=== PATIENT | male | born 2000 | race Caucasian/White ===

== ENCOUNTER 2021-06-20 17:19 | Emergency (ER) | payer BC, SELFPAY ==
[2021-06-20 17:25] VITALS: BP 114/66; PULSE 68; RESP 18; TEMP 36.9; O2SAT 100; BMI 22.8
[2021-06-20] MEDS: Famotidine/PF 20 MG/2 ML VIAL IVPUSH (17:37)
[2021-06-20] MEDS: methylPREDNISolone Sod Succ 125 MG/2 ML VIAL IVPUSH (17:37)
[2021-06-20] MEDS: diphenhydrAMINE HCL 50 MG/ML VIAL 25 MG IVPUSH (17:37)
--- NOTE | 2021-06-20 18:05 | ED.ALLEREA ---
HPI - Allergic Reaction General Chief complaint: Allergic Reaction Stated complaint: allergic reaction to bee sting Time Seen by Provider: 06/20/21 17:33 Source: patient Mode of arrival: ambulatory Limitations: no limitations History of Present Illness HPI narrative: Patient comes to the emergency room complaining of an allergic reaction to a bee sting. Patient states he was stung in the chin. Complaining hives in his head, face, upper chest, initially very itchy. Prior to arrival, the patient's mother gave her children's Benadryl in the code form. Patient states that since then he is no longer itching, patient denies shortness of breath, no foreign body sensation in his throat Related Data Previous Rx's Medication Instructions Recorded epinephrine 0.3 mg/0.3 mL 0.3 mg IM Q10M PRN #2 ea 06/20/21 injection, auto-injector (EpiPen) Allergies Allergy/AdvReac Type Severity Reaction Status Date / Time No Known Allergies Allergy Verified 06/20/21 17:33 Review of Systems Review of Systems: Constitutional : No Weight loss, No Fever, No Chills, No Night Sweats, No Fatigue, No Malaise ENT/Mouth : No Hearing loss, No Ear Pain, No Nasal Congestion, No Sinus Pain, No Hoarseness, No sore throat, No Rhinorrhea, No Swallowing Difficulty Eyes: No Eye Pain, No Swelling, No Redness, No Foreign Body, No Discharge, No Vision Changes Cardiovascular : No Chest Pain, No SOB, No Dyspnea on Exertion, No Orthopnea, No Edema, No Palpitations Respiratory : No Cough, No Sputum, No Wheezing, No Smoke Exposure, No Dyspnea Gastrointestinal : No Nausea, No Vomiting, No Diarrhea, No Constipation, No abdominal Pain, No Hematochezia, No Melena Genitourinary : no irregular bleeding, No Dysuria, No Urinary Frequency, No Hematuria, No Urinary Incontinence, No Urgency, No Flank Pain, No Urinary Flow Changes, No Hesitancy Musculoskeletal : No joint pain, No Myalgias, No Joint Swelling Skin : Hives in the head, face, back and chest Neuro : No Weakness, No Numbness, No Paresthesias, No Loss of Consciousness, No Dizziness, No Headache Psych : No Anxiety/Panic, No Depression, No SI/HI/AH/VH, No Social Issues, Heme/Lymph: No Bruising, No Bleeding,No Lymphadenopathy Endocrine : No Polyuria, No Polydipsia, No Temperature Intolerance PMFSH Social History Social History Alcohol intake: never Patient Tobacco Use Status: Never used Tobacco Use of substances other than those prescribed or required for medical reasons: No Advance Directives: No Advance Directives Information Provided: No Physical Exam Vital Signs: Vital Signs: Last Vital Signs Temp 98.4 F 06/20/21 17:25 Pulse 68 06/20/21 17:25 Resp 18 06/20/21 17:25 BP 114/66 06/20/21 17:25 Pulse Ox 100 06/20/21 17:25 Body Mass Index 22.8 Const: Other: Appearance: Alert. Oriented X3. No acute distress. Eyes: Pupils equal, round and reactive to light. ENT: Pharynx normal. No angioedema Neck: Normal inspection. Neck supple. No lymph nodes noted. No crepitus CVS: Normal heart rate and rhythm. Pulses normal. Normal S1 and S2 Respiratory: No respiratory distress. Breath sounds normal. No Wheezing. No rales Abdomen: Soft and nontender. No rigidity. No distention. good BS x4 Skin: Skin warm and dry. Flushed, hives in the head, face, neck, torso Extremities: No lower extremity edema. No lower extremity edema. No Lacerations. No Rash Neuro: Oriented X 3. No motor deficit. No sensory deficit. Moving all extermities. No slurred speech. Course Course Course Narrative: Patient is ready for discharge, asymptomatic. Patient with Kalyan a prescription for EpiPen, discussed how and when to use it. Reevaluation(s) Reevaluation #1: Patient noticeably improved, hives are almost resolved, patient is asymptomatic, long broths within normal limits, oropharynx within normal limits, no angioedema. Reevaluation #2: Patient's eyes completely resolve, patient asymptomatic, normal breath sounds, no angioedema. Time: 19:05 Discharge Plan Discharge Clinical Impression: Bee sting allergy Patient Disposition: Home, Self-Care Instructions: Insect Bite or Sting (ED) Additional Instructions: Please follow-up with your primary care physician tomorrow. If you have any worsening or new symptoms, please return to the emergency room or call 911 Prescriptions: New epinephrine [EpiPen] 0.3 mg/0.3 mL auto-injector 0.3 mg IM Q10M PRN (Reason: anaphylaxis) Qty: 2 RF: 0
[2021-06-20 19:33] VITALS: BP 113/60; PULSE 61; RESP 16; TEMP 37.1; O2SAT 100
== END 2021-06-20 19:38 | disposition home or self-care (01) ==
PROVIDERS: Emergency Provider Emergency Medicine
DX: T63.441A Toxic effect of venom of bees, accidental (unintentional), initial encounter (principal); Y92.9 Unspecified place or not applicable; Z79.899 Other long term (current) drug therapy
CPT/HCPCS: 96374; 96375; 99284; 99285; J1200; J2930

== ENCOUNTER → 2022-11-20 15:09 | Outpatient (BNVA) | payer SELFPAY | PROVIDERS: Visit Provider Physician Assistant | DX: Z13.89 Encounter for screening for other disorder (principal) ==

== ENCOUNTER 2025-05-31 21:21 | Emergency (ER) | payer BC, SELFPAY ==
--- NOTE | 2025-05-31 21:24 | ECG_ITS ---
Test Reason : CHEST PAIN Blood Pressure : */* mmHG Vent. Rate : 53 BPM Atrial Rate : 53 BPM P-R Int : 190 ms QRS Dur : 102 ms QT Int : 392 ms P-R-T Axes : 48 61 48 degrees QTcB Int : 367 ms Sinus bradycardia Otherwise normal ECG No previous ECGs available Referred By: Generic ED Physician Electronically Signed By: ELIZABETH ANAYA MD
[2025-05-31 21:47] LABS: MANUAL DIFF FLAG NO
[2025-05-31 21:48] LABS: Hematocrit 40.9 % (42.0-52.0); Hemoglobin 14.1 g/dl (14.0-18.0); Imm Gran Abs Auto 0.01 X10*3/uL (0.00-0.03); Imm Gran Pct Auto 0.2 % (0.0-0.4); Lymphocytes Absolute Auto 2.1 X10*3/uL (1.2-4.9); Mean Corpuscular HGB Conc 34.5 g/dl (31.0-36.0); Mean Corpuscular Hemoglobin 29.3 pg (27.0-33.0); Mean Corpuscular Volume 84.9 fL (80.0-98.0); NRBC Abs Auto 0.000 X10*3/uL (0.0-0.012); NRBC Pct Auto 0.0 /100WBC (0.0-0.2); Platelet Count 228 X10*3/uL (160-400); Red Blood Count 4.82 X10*6/uL (4.60-5.80); White Blood Count 5.3 X10*3/uL (4.8-10.8)
[2025-05-31 22:04] VITALS: BP 134/78; PULSE 52; RESP 16; TEMP 36.6; O2SAT 98; BMI 24.8
[2025-05-31 22:09] LABS: Anion Gap 12 (12-20); Blood Urea Nitrogen 19 mg/dL (9-16); Carbon Dioxide 28 mmol/L (22-29); Chloride 107 mmol/L (96-108); Potassium 3.8 mmol/L (3.3-5.1); Sodium 143 mmol/L (135-145)
[2025-05-31 22:10] LABS: Calcium 8.9 mg/dL (8.4-10.2); Creatinine Clr Calc Pharmacy 110.8; Estimated Glomerular Filt Rate > 60
[2025-05-31 22:19] LABS: Troponin-I High Sensitivity < 2.7 ng/L (<3.5-35.0)
--- NOTE | 2025-05-31 23:11 | ED.CHESTPAIN ---
HPI - Chest Pain General Chief Complaint: Chest Pain Stated Complaint: chest pain/possible AFib Time Seen by Provider: 05/31/25 23:07 History of Present Illness ED Provider: Shai Cuellar MD HPI narrative: 24-year-old male with intermittent nonradiating left-sided chest pain ongoing for a year. 1 year of intermittent, seconds-long lasting non exertional chest pain under L pectoral region. Non pleuritic. No prior PE, lung/cardiac hx personally or in family. Used a home BP cuff today that said possible AFib so came in for eval, no change in chest pain Related Data Previous Rx's ?Medication ?Instructions ?Recorded epinephrine 0.3 mg/0.3 mL 0.3 mg (0.3 mL) IM Q10M PRN 06/20/21 injection, auto-injector (EpiPen) anaphylaxis #2 ea Allergies Allergy/AdvReac Type Severity Reaction Status Date / Time bee pollen (bee stings) Allergy Hives Verified 05/31/25 22:07 COUNT INCLUDES THE [facility] Social History Social History Alcohol intake: never Patient Tobacco Use Status: Never used Tobacco Smoked in Last 30 Days: No Use of substances other than those prescribed or required for medical reasons: No Advance Directives: No Physical Exam Exam: Exam: EXAM: Gen: Alert, awake, well appearing, well hydrated. Head: Atraumatic Eyes: Anicteric, Normal conjunctiva. ENT: Moist mucosa, no pallor. Neck: Supple. Respiratory: Breathing comfortably, No distress.Clear to auscultation bilaterally, symmetric chest expansion, No wheeze, rales, ronchi. Cardiovascular: Regular rate and rhythm. No murmurs or rub. Well perfused periphery, warm extremities. No edema. Abdominal: Soft, no objective distension. No palpable masses or obvious organomegaly. No focal tenderness, no guarding, no rebound tenderness or other peritoneal findings. : No flank tenderness. Neuro: Alert. Gross movement of all extremities intact. Vital signs: See flowsheet Vital Signs: Vital Signs: Last Vital Signs Temp 97.8 F 06/01/25 00:38 Pulse 55 06/01/25 00:38 Resp 16 06/01/25 00:38 BP 107/70 06/01/25 00:38 Pulse Ox 99 06/01/25 00:38 O2 Del Method Room Air 06/01/25 00:38 BMI result Body Mass Index 24.8 Procedures Procedure Narrative Procedure Narrative: tele event: rohan w irregularity. Sinus arrhythmia Medical Decision Making Medical Decision Making MDM Narrative: Medical Decision Makin-year-old male with atypical likely noncardiac intermittent chest pain ongoing for a year only came for evaluation because of blood pressure cuff told him that he possibly had AFib. The patient does have mild bradycardia but is young and athletic and this is sinus bradycardia with marked sinus arrhythmia. Reassuring lab work physical examination PCP follow up recommended Preliminary Favored Differential Diagnosis: Sinus arrhythmia, musculoskeletal chest pain among additional considered etiologies Testing Interpreted Independently: ?EKG sinus bradycardia see below Radiology or Lab testing Results Reviewed: ?See below for details Consults: ?See below for details Independent Historians/External Chart Reviews: ?See below for details Social Determinants of Health Impacting MDM/Planning: ?See below for details Lab Data 05/31/25 21:40 05/31/25 21:40 Labs: Lab Results 05/31/25 Range/Units 21:40 WBC 5.3 (4.8-10.8) X10*3/uL RBC 4.82 (4.60-5.80) X10*6/uL Hgb 14.1 (14.0-18.0) g/dl Hct 40.9 L (42.0-52.0) % MCV 84.9 (80.0-98.0) fL MCH 29.3 (27.0-33.0) pg MCHC 34.5 (31.0-36.0) g/dl RDW 12.5 (11.0-16.0) % Plt Count 228 (160-400) X10*3/uL MPV 9.2 L (9.4-12.4) fL Immature Gran % (Auto) 0.2 (0.0-0.4) % Neut % (Auto) 45.5 (45-73) % Lymph % (Auto) 40.0 (20-40) % [place] % (Auto) 9.5 (2-11) % Eos % (Auto) 4.2 H (0-4) % Baso % (Auto) 0.6 (0-2) % Lymph # (Auto) 2.1 (1.2-4.9) X10*3/uL [place] # (Auto) 0.5 (0.1-1.2) X10*3/uL Eos # (Auto) 0.2 (0.0-0.4) X10*3/uL Baso # (Auto) 0.0 (0.0-0.2) X10*3/uL Abs Immat Gran (auto) 0.01 (0.00-0.03) X10*3/uL Absolute Neuts (auto) 2.4 (2.0-8.3) x10*3/uL Absolute Nucleated RBC 0.000 (0.0-0.012) X10*3/uL Nucleated RBC % (auto) 0.0 (0.0-0.2) /100WBC Sodium 143 (135-145) mmol/L Potassium 3.8 (3.3-5.1) mmol/L Chloride 107 (96-108) mmol/L Carbon Dioxide 28 (22-29) mmol/L Anion Gap 12 (12-20) BUN 19 H (9-16) mg/dL Creatinine 1.07 (0.5-1.4) mg/dL Estim Creat Clear Calc 110.8 Estimated GFR > 60 Random Glucose 83 (60-115) mg/dL Calcium 8.9 (8.4-10.2) mg/dL Troponin I High Sens < 2.7 (<3.5-35.0) ng/L Independent Interpretation I performed an independent interpretation of an: EKG (Sinus rhythm bradycardia rate 53 QTC 367 NE 190. Early precordial concave upward ST elevations probably benign early repolarization) Discharge Plan Discharge Clinical Impression: Atypical chest pain, Arrhythmia, sinus node Patient Disposition: Home, Self-Care Instructions: Chest Pain (DC) Additional Instructions: You were evaluated for atypical chest pain and a blood pressure cuff the told you that you might have had atrial fibrillation. This is likely because you have a slow and sometimes irregular heart that is normal in a healthy young person like you. Prescriptions: No Action epinephrine [EpiPen] 0.3 mg/0.3 mL auto-injector 0.3 mg IM Q10M PRN (Reason: anaphylaxis) Qty: 2 0RF Rx Instructions: for 2 doses Interventions: ED Discharge Assessment Last Done: 06/01/25 00:38 Discharge Date/Time: 06/01/25 00:38 Print Language: Tajik
--- OUTSIDE RECORDS SUMMARY | 2025-05-31 23:55 | XMS_ITS | Clinical Summary ---
Author Organization [facility] Address [address] [place] [phone] Phone Care Team Providers Care Principal Programmer Name Role Phone Simin Carrasco MD Primary Care Provider [phone] Allergies No known active allergies Medications predniSONE (DELTASONE) 10 MG tabletIndication s:Allergic contact dermatitis due to plant Take 6 pills orally for 5 days, 4 pills for 5 days, 2 pills for 5 days, 1 pills for 5 days, then stop. 65 tablet 04/28/2021 Active Active Problems No known active problems Immunizations Immunization Administration Dates Next Due COVID-19 (Pre-07/14) Moderna Vaccine, mRNA, PF 04/03/2021,03/06/2021 Hepatitis A, ped/adol, 2 dose 07/11/2015 Influenza Quadrivalent Preservative Free IM 07/23,07/20/2018,07/17/2017 Influenza Quadrivalent w/ Preservative IM 2015,07/11/2015 Meningococcal B, recombinant (MenB-FHbp) 020 Meningococcal MCV4P 07/20/2018 Social History Tobacco Use Types Packs/Day Years Used Date Smoking Tobacco: Never Smokeless Tobacco: Never Alcohol Use Standard Drinks/Week Comments Never 0 (1 standard drink = 0.6 oz pur e alcohol) Education Answer Date Recorded Are you interested in more education? Not on juliane e 01/18/2023 Are you concerned about learning? Not on file 01/18/2023 No 01/18/2023 No 01/18/2023 Digital Access Answer Date Recorded No 02/16/2023 No 02/16/2023 No 02/16/2023 Reliable internet access at home? Not on file 02/16/2023 Device with a working camera? Not on file Sex and Gender Information Value Date Recorded Sex Assigned at Not on file Legal Sex Male 7:00 PM EDT Gender Identity Not on file Sexual Orientation Not on file Last Filed Vital Signs Vital Sign Reading Time Taken Comments Blood Pressure 118/75 04/28/2021 1:44 PM EDT Pulse 58 04/28/2021 1:44 PM EDT Temperature 37.3 C (99.1 F) 04/28/2021 1:44 PM EDT Respiratory Rate 18 04/28/2021 1:44 PM EDT Oxygen Saturation 97% 04/28/2021 1:44 PM EDT Inhaled Oxygen Concentration - - Weight 69.9 kg (154 lb) 04/28/2021 1:44 PM EDT Height 172.7 cm (5' 8 ) 04/28/2021 1:44 PM EDT Body Mass Index 23.42 04/28/2021 1:44 PM EDT Plan of Treatment Health Maintenance Due Date Last Done Comments Adult Td,Tdap Booster 2001 DEPRESSION SCREENING 2013 SMOKING Hx and SMOKELESS TOBACCO SCREENING 2014 HEPATITIS A VACCINES (2 of 2 - 2-dose series) 01/10/2016 07/11/2015 HPV VACCINES (1 - Male 3-dose series) 2016 HEPATITIS C SCREENING 2019 HIV ONE-TIME SCREENING (18-65 YEARS) 2019 MENINGOCOCCAL VACCINES (B) (2 of 2 - Trumenba SCDM 2-dose series) 02/07/2021 08/10/2020 INFLUENZA VACCINE (#1) 2025 9, 07/20/2018, 07/17/2017, Additional history exists COVID-19 VACCINE ( - season) 2025 04/03/2021, 03/06/2021 MENINGOCOCCAL VACCINES (ACWY) Completed 07/20/2018 HIB VACCINES Aged Out No longer eligi ble based on patient's age to complete this topic PNEUMOCOCCAL VACCINES (0-49 years) Aged Out No longer eligible based on patient's age to complete this topic Medical Devices Not on file [facility] [employer] [id number] Care Teams Principal Programmer Relationship Specialty Start Date End Date Simin Carrasco MD [address] [place] [phone] PCP - General Adolescent Medicine 04/11/21 Additional Source Comments The information contained in this document represents components of the legal health record. It is not the complete legal health record.[facility]
[2025-06-01] VITALS: BP 111/71; PULSE 55; RESP 15; TEMP 36.7; O2SAT 98
[2025-06-01 00:37] VITALS: BP 107/70; PULSE 55; RESP 16; TEMP 36.6; O2SAT 99
[2025-06-01 00:38] VITALS: BP 107/70; PULSE 55; RESP 16; TEMP 36.6; O2SAT 99
== END 2025-06-01 00:38 | disposition home or self-care (01) ==
PROVIDERS: Emergency Provider Emergency Medicine
DX: R07.89 Other chest pain (principal); I49.8 Other specified cardiac arrhythmias; Z79.899 Other long term (current) drug therapy
CPT/HCPCS: 36415; 80048; 84484; 85025; 93005; 99283; 99284

== ENCOUNTER → 2025-05-31 21:24 | Outpatient (BNV) | payer BC, SELFPAY | PROVIDERS: Emergency Provider Emergency Medicine; Visit Provider Internal Medicine Cardiovascular Disease | DX: R00.1 Bradycardia, unspecified (principal) | CPT/HCPCS: 93010 ==

== ENCOUNTER 2025-06-16 15:27 | Outpatient (REF) | payer BC, SELFPAY ==
[2025-06-16 17:56] LABS: MANUAL DIFF FLAG NO
[2025-06-16 18:08] LABS: Hematocrit 42.3 % (42.0-52.0); Hemoglobin 14.3 g/dl (14.0-18.0); Imm Gran Abs Auto 0.01 X10*3/uL (0.00-0.03); Imm Gran Pct Auto 0.2 % (0.0-0.4); Lymphocytes Absolute Auto 1.7 X10*3/uL (1.2-4.9); Mean Corpuscular HGB Conc 33.8 g/dl (31.0-36.0); Mean Corpuscular Hemoglobin 29.1 pg (27.0-33.0); Mean Corpuscular Volume 86.2 fL (80.0-98.0); NRBC Abs Auto 0.000 X10*3/uL (0.0-0.012); NRBC Pct Auto 0.0 /100WBC (0.0-0.2); Platelet Count 230 X10*3/uL (160-400); Red Blood Count 4.91 X10*6/uL (4.60-5.80); White Blood Count 4.3 X10*3/uL (4.8-10.8)
[2025-06-16 18:40] LABS: Alanine Aminotransferase 18 U/L (0-40); Albumin Level 4.5 g/dL (3.5-5.0); Alkaline Phosphatase 59 U/L (39-117); Anion Gap 11 (12-20); Aspartate Amino Transferase 27 U/L (5-37); Blood Urea Nitrogen 17 mg/dL (9-16); Calcium 9.1 mg/dL (8.4-10.2); Carbon Dioxide 27 mmol/L (22-29); Chloride 106 mmol/L (96-108); Cholesterol 111 mg/dL (<200); Estimated Glomerular Filt Rate > 60; HDL Cholesterol 37 mg/dL (>40); Potassium 3.9 mmol/L (3.3-5.1); Sodium 140 mmol/L (135-145); Total Protein 7.6 g/dL (6.5-8.0); Triglycerides 64 mg/dL (<150)
[2025-06-16 19:05] LABS: Folate 14.7 ng/mL (> or = 4.0); Vitamin B12 353 pg/mL (200-900)
[2025-06-17 08:11] LABS: Syphilis Screen Nonreactive (Nonreactive)
[2025-06-17 08:35] LABS: HBS Num1 1.32 mIU/mL (0-7.99); HBsAGNum1 0.42 S/CO (0.00-0.99); HIV Num 1 0.06 S/CO (0.00-0.99); Hepatitis B Surface Antigen Negative (Negative); ~HepC Num1 0.11 S/CO (0.00-0.79); ~Hepatitis B Surface Antibody NONREACTIVE (Nonreactive); ~Hepatitis C Antibody Nonreactive (Nonreactive)
[2025-06-20 19:59] LABS: VITAMIN D (1,25 OH) D3 35 pg/mL; Vit D (1,25-Dihydroxy) Total 35 pg/mL (18-72); Vitamin D (1,25 OH) D2 <8 pg/mL
[2025-06-21 22:59] LABS: Chlamydia Trachomatis IgA <1:16 titer (<1:16)
== END 2025-06-16 15:28 | disposition home or self-care (01) ==
LOC: HO.HKASLDS 15:27
PROVIDERS: Visit Provider Student in an Organized Health Care Education/Training Program
DX: Z76.89 Persons encountering health services in other specified circumstances (principal); Z13.9 Encounter for screening, unspecified; Z71.9 Counseling, unspecified; Z13.6 Encounter for screening for cardiovascular disorders; Z13.1 Encounter for screening for diabetes mellitus; Z13.220 Encounter for screening for lipoid disorders; Z13.31 Encounter for screening for depression; Z11.3 Encounter for screening for infections with a predominantly sexual mode of transmission; Z11.4 Encounter for screening for human immunodeficiency virus [HIV]
CPT/HCPCS: 36415; 80053; 80061; 82607; 82652; 82746; 83036; 85025; 86631; 86632; 86706; 86780; 86803; 87340; 87389

== ENCOUNTER 2025-06-16 15:27 | Outpatient (AMB) | payer BC, SELFPAY ==
--- NOTE | 2025-06-16 15:31 | MHC.PC.OV ---
Vital Signs 06/16/25 15:33 Height 5 ft 9.29 in Weight 175 lb 2 oz BMI 25.6 BP 106/80 Blood Pressure Location Rt brachial Position Sitting Respiration 16 Pulse 50 Pulse Source Pulse Oximeter Temp 98.1 F Temp Source Oral Pulse Oximetry (%) 99 Oxygen Delivery Method Room Air Intake Visit Reasons: [employer] irregular heart rhythm Filter Washer Required: No Accompanied by: Self / Same As Patient Allergies bee pollen (bee stings) Allergy (Verified 06/16/25 15:31) Hives Tobacco use date assessed: 06/16/25 Dental Screening Dental Screen Date: 06/16/25 Did you have a dental visit in the last 12 months?: No Did you have a dental problem in the last 6 months where you did not have access to dental care?: No Was dental information given to patient?: Patient has dentist HPI HPI Comments History of Present Illness Details History of Present Illness The patient is a 24-year-old male presenting for an establishment of care and preventative health screening. Bee sting allergy: - History of bee sting allergy requiring EpiPen, currently discontinued. Preventative care: - Screening for sexually transmitted infections including HIV, hepatitis B, chlamydia, gonorrhea, and syphilis planned. - General health screening including CBC, urinalysis, and vitamin levels planned. Review of Systems - General: Denies fatigue, weight loss, or fever. - Cardiovascular: Denies chest pain, palpitations, or syncope. - Respiratory: Denies cough, dyspnea, or wheezing. - Neurological: Denies headaches, dizziness, or numbness. 10-point ROS reviewed and negative except as noted in HPI Past Medical History - Bee sting allergy, previously required EpiPen. Health Maintenance - Screening for sexually transmitted infections including HIV, hepatitis B, chlamydia, gonorrhea, and syphilis planned. - General health screening including CBC, urinalysis, and vitamin levels planned. Physical Exam General: Well-appearing, in no acute distress. Vital signs: Blood pressure looks good. Heart rate is a little slow, but that's normal in young people. HEENT: Normocephalic, atraumatic. PERRLA, EOMI. Conjunctiva clear, sclera anicteric. Oropharynx clear, mucous membranes moist. TMs intact bilaterally. Neck: Supple, no lymphadenopathy, no thyromegaly, no JVD or carotid bruits. Cardiovascular: RRR, normal S1/S2, no murmurs, rubs, or gallops. Peripheral pulses 2+ and symmetric. No edema. Respiratory: Lungs clear to auscultation bilaterally, no wheezes, rales, or rhonchi. Normal effort. Abdomen: Soft, non-tender, non-distended. Normoactive bowel sounds. No hepatosplenomegaly, no masses. MSK: Full range of motion, no joint swelling or deformity. Normal gait. Skin: Warm, dry, intact. No rashes, lesions, or pallor. Neuro: Alert and oriented x3. Cranial nerves II-XII intact. Strength 5/5 throughout. Sensation intact. Reflexes 2+ symmetric. Normal coordination and gait. Psych: Appropriate mood and affect. Normal judgment and insight. Plan 1. Bee Sting Allergy - No current EpiPen prescription; monitor for future allergic reactions. 2. Preventative Care - Plan to conduct screening for sexually transmitted infections and general health screening including CBC, urinalysis, and vitamin levels. Discussion Notes I discussed with the patient the importance of preventative health screenings, including sexually transmitted infection screenings and general health checks. We also reviewed his family history of stroke and the need to monitor his health closely. The patient was informed about the planned blood tests and screenings, and he agreed to proceed with them. Patient was informed and verbally consented to the use of an ambient scribe for clinic note documentation during this visit. Patient Instructions - Follow up with lab results once available. - Monitor for any allergic reactions to bee stings and seek medical attention if necessary. [facility] Family History (Updated 06/16/25 @ 15:36 by Rico Crouch MA) Father Stroke Mother No problems noted. Social History Housing: House Alcohol intake: current Alcohol intake frequency: does not drink Patient Tobacco Use Status: Never used Tobacco service: No Current occupational status: employed Cognitive needs: No Hearing needs: No Vision needs: No Questionnaire PHQ-9 Over the last 2 weeks, how often have you been bothered by any of the following problems? 1. Little interest or pleasure in doing things: not at all 2. Feeling down, depressed, or hopeless: not at all 3. Trouble falling or staying asleep, or sleeping too much: not at all 4. Feeling tired or having little energy: not at all 5. Poor appetite or overeating: not at all 6. Feeling bad about yourself - or that you are a failure or have let yourself or your family down: not at all 7. Trouble concentrating on things, such as reading the newspaper or watching television: not at all 8. Moving or speaking so slowly that other people could have noticed. Or the opposite - being so fidgety or restless that you have been moving around a lot more than usual: not at all 9. Thoughts that you would be better off or of hurting yourself in some way: not at all Total score: 0 Depression Screening Interpretation: Negative Depression Screening Done: Yes Source: Developed by Drs. John Richards, Heather Ricks, Fransisco Brownlee and colleagues, with an educational gabe from [employer]. Thrive Questionnaire I am a: Patient What is your living situation today?: I have a steady place to live Within the past 12 months, did the food you bought not last and you didn't have the money to get more?: Never true Within the past 12 months, did you worry whether your food would run out before you got money to buy more?: Never true Do you have trouble paying for medicines?: No Do you have trouble getting transportation to medical appointments?: No Do you have trouble paying your heating and electricity bill?: No Do you have trouble taking care of your child, family member or friend?: No Are you currently unemployed and looking for a job?: No Are you interested in more education?: No Please select the resources that you would like help with: None Currently or been in a relationship where the following occur: No concerns reported THRIVE Score: 0 AUDIT C Alcohol Use Questionnaire (AUDIT-C) 1. How often do you have a drink containing alcohol?: Never Total Score: 0 DANYELLE-7 AMB Questionnaire DANYELLE-7 Feeling nervous, anxious, or on edge: 0 = Not at all Not being able to stop or control worryin = Not at all Worrying too much about different things: 0 = Not at all Trouble relaxin = Not at all Being so restless that it is hard to sit still: 0 = Not at all Becoming easily annoyed or irritable: 0 = Not at all Feeling afraid as if something awful might happen: 0 = Not at all Total DANYELLE-7 score (0-4 normal; 5-9 mild; 10-14 moderate; 15-21 severe): 0 Source: Developed by Drs. John Richards, Heather Ricks, Fransisco Brownlee and colleagues, with an educational gabe from [employer]. Physical exam (Primary Care) Tobacco/Smoking Status: Tobacco use Status Patient Tobacco Use Status Never used Tobacco 06/20/21 17:41 Depression Screening Interpretation: Negative Currently or been in a relationship where the following occur: No concerns reported Coding Level of Care Code New Pt Level 3 (51749) Diagnoses Encounter to establish care with new provider Z76.89 Encounter for screening, unspecified Z13.9 Counseling, unspecified Z71.9 Screening for hypertension Z13.6 Screening for diabetes mellitus Z13.1 Screening for lipoid disorders Z13.220 Screening for depression Z13.31 Routine screening for STI (sexually transmitted infection) Z11.3 Screening for HIV (human immunodeficiency virus) Z11.4 Assessment & Plan Assessment & Plan (1) Encounter to establish care with new provider: Code(s): Z76.89 - Persons encountering health services in other specified circumstances (2) Encounter for screening, unspecified: Code(s): Z13.9 - Encounter for screening, unspecified (3) Counseling, unspecified: Code(s): Z71.9 - Counseling, unspecified (4) Screening for hypertension: Code(s): Z13.6 - Encounter for screening for cardiovascular disorders (5) Screening for diabetes mellitus: Code(s): Z13.1 - Encounter for screening for diabetes mellitus (6) Screening for lipoid disorders: Code(s): Z13.220 - Encounter for screening for lipoid disorders (7) Screening for depression: Code(s): Z13.31 - Encounter for screening for depression (8) Routine screening for STI (sexually transmitted infection): Code(s): Z11.3 - Encounter for screening for infections with a predominantly sexual mode of transmission (9) Screening for HIV (human immunodeficiency virus): Code(s): Z11.4 - Encounter for screening for human immunodeficiency virus [HIV] Plan Orders: Orders Comprehensive Met. Panel Today Z13.9 - Encounter for screening, unspecified, Z76.89 - Persons encountering health services in other specified circumstances Chlamydia Species Ab Panel Today Z13.9 - Encounter for screening, unspecified, Z76.89 - Persons encountering health services in other specified circumstances HIV Ab/Ag Today Z13.9 - Encounter for screening, unspecified, Z76.89 - Persons encountering health services in other specified circumstances Lipid Panel Today Z13.9 - Encounter for screening, unspecified, Z76.89 - Persons encountering health services in other specified circumstances Hepatitis B Surface Antigen Today Z13.9 - Encounter for screening, unspecified, Z76.89 - Persons encountering health services in other specified circumstances Hepatitis C Antibody Today Z13.9 - Encounter for screening, unspecified, Z76.89 - Persons encountering health services in other specified circumstances Syphilis Screen Today Z13.9 - Encounter for screening, unspecified, Z76.89 - Persons encountering health services in other specified circumstances UA CC w/rflx Micro + Cult Today Z13.9 - Encounter for screening, unspecified, Z76.89 - Persons encountering health services in other specified circumstances Vitamin D 1,25 dihydroxy Today Z13.9 - Encounter for screening, unspecified, Z76.89 - Persons encountering health services in other specified circumstances Complete Blood Count Auto Diff Today Z13.9 - Encounter for screening, unspecified, Z76.89 - Persons encountering health services in other specified circumstances Hemoglobin A1c Today Z13.9 - Encounter for screening, unspecified, Z76.89 - Persons encountering health services in other specified circumstances Hepatitis B Surface Antibody Today Z13.9 - Encounter for screening, unspecified, Z76.89 - Persons encountering health services in other specified circumstances Vitamin B12 and Folate Today Z13.9 - Encounter for screening, unspecified, Z76.89 - Persons encountering health services in other specified circumstances
[2025-06-16 15:33] VITALS: BP 106/80; PULSE 50; RESP 16; TEMP 36.7; O2SAT 99; BMI 25.6
--- OUTSIDE RECORDS SUMMARY | 2025-06-16 19:33 | XMS_ITS | Clinical Summary ---
Author Organization [facility] Address [address] [place] [id number] Phone Care Team Providers Care Endoscopy Technician Name Role Phone Simin Carrasco MD Primary Care Provider [phone] Allergies No known active allergies Medications predniSONE [...] topic Medical Devices Not on file [facility] [employer] [id number] Care Teams Endoscopy Technician Relationship Specialty Start Date End Date Simin Carrasco MD [address] [place] [id number] PCP - General Adolescent Medicine 04/11/21 Additional Source Comments The information contained in this document represents components of the legal health record. It is not the complete legal health record[facility]
== END 2025-06-16 15:48 | disposition home or self-care (01) ==
LOC: HO.HMCFMS 15:28
PROVIDERS: Visit Provider Student in an Organized Health Care Education/Training Program
DX: Z00.00 Encounter for general adult medical examination without abnormal findings (principal)